=== PATIENT | female | born 1985 ===

== ENCOUNTER 2020-06-02 13:10 | Emergency (ER) | payer SELFPAY ==
--- NOTE | 2020-06-02 13:33 | Emergency Department Report ---
Blank Doc - Documentation Documentation: 35-year-old female that presents with SOB and cough. Stated has positive COVID. This initial assessment/diagnostic orders/clinical plan/treatment(s) is/are subject to change based on patient's health status, clinical progression and re- assessment by fellow clinical providers in the ED. Further treatment and workup at subsequent clinical providers discretion. Patient/guardians urged not to elope from the ED as their condition may be serious if not clinically assessed and managed. Initial orders include: 1- Patient sent to [facility] for further evaluation and treatment 2- CXR
--- NOTE | 2020-06-02 14:06 | XRay Report ---
CHEST 2 VIEWS INDICATION / CLINICAL INFORMATION: cough. COMPARISON: None available. FINDINGS: SUPPORT DEVICES: None. HEART / MEDIASTINUM: No significant abnormality. LUNGS / PLEURA: No significant pulmonary or pleural abnormality. No pneumothorax. No confluent infilt rate or pleural effusion. Calcified granuloma the right midlung field measures 0.7 cm. ADDITIONAL FINDINGS: No significant additional findings. IMPRESSION: 1. No acute findings. Signer Name: Zack Holloway MD Signed: 06/02/2020 2:01 PM Workstation Name: [employer]
[2020-06-03 02:11] LABS: Basophils % (Auto) 0.3 % (0.0-1.8); Eosinophils # (Auto) 0.1 K/mm3 (0.0-0.4); Eosinophils % (Auto) 1.4 % (0.0-4.3); Hematocrit 35.8 % (30.3-42.9); Hemoglobin 12.3 gm/dl (10.1-14.3); Lymphocytes # (Auto) 2.4 K/mm3 (1.2-5.4); Lymphocytes % (Auto) 27.2 % (13.4-35.0); Mean Corpuscular HGB Conc 34 % (30-34); Mean Corpuscular Volume 73 fl (79-97); Monocytes # (Auto) 0.6 K/mm3 (0.0-0.8); Monocytes % (Auto) 6.2 % (0.0-7.3); Platelet Count 344 K/mm3 (140-440); Red Cell Distribution Width 15.3 % (13.2-15.2)
[2020-06-03 02:37] LABS: Alanine Aminotransferase 64 units/L (7-56); Albumin 4.2 g/dL (3.9-5); Blood Urea Nitrogen 12 mg/dL (7-17); Calcium 9.7 mg/dL (8.4-10.2); Hemolysis Index 3
[2020-06-03 02:51] LABS: BUN/Creatinine Ratio 24
[2020-06-03] MEDS ORDERED: dexAMETHasone 20 MG/5 ML VIAL IV ONE (03:35)
[2020-06-03] MEDS ORDERED: ACETAMINOPHEN 325 MG TAB PO ONE (03:35)
--- NOTE | 2020-06-03 03:36 | Emergency Department Report ---
ED General Adult HPI - General Chief complaint: Dyspnea/Respdistress Stated complaint: SOB Time Seen by Provider: 06/02/20 13:32 Source: patient Mode of arrival: Ambulatory Limitations: No Limitations - History of Present Illness Initial comments: 35-year-old female presents with complaints of shortness of breath times today. Patient states her symptoms began with a cough and headache 1 week ago and she tested positive for COVID-19 yesterday. She denies any hemoptysis, nausea/vomiting/diarrhea, fever, abdominal pain, or leg pain/swelling. She sta main she has a decreased appetite and is has not been eating or drinking much. She also reports mild bilateral mid/lateral back pain that worsens with inhalation. She denies any past medical history or smoking. - Related Data Previous Rx's Medication Instructions Recorded Last Taken Type Albuterol Mdi (or & Nicu Only) 2 puff IH Q4H PRN #8.5 gram 06/03/20 Unknown Rx [ProAir HFA Inhaler] Azithromycin [Zithromax Z-DORYS] 0 mg PO DAILY 5 Days #6 tab 06/03/20 Unknown Rx Benzonatate 200 mg PO TID PRN #30 capsule 06/03/20 Unknown Rx predniSONE [Deltasone] 20 mg PO BID #6 tab 06/03/20 Unknown Rx Allergies Allergy/AdvReac Type Severity Reaction Status Date / Time No Known Allergies Allergy Unverified 06/02/20 13:29 ED Review of Systems ROS: Stated complaint: SOB Other details as noted in HPI Constitutional: chills, diaphoresis, malaise, weakness. denies: fever ENT: denies: throat pain Respiratory: cough, shortness of breath Cardiovascular: as per HPI Gastrointestinal: denies: abdominal pain, nausea, vomiting, diarrhea Genitourinary: denies: dysuria, frequency, hematuria Skin: denies: rash, lesions, change in color Neurological: headache. denies: numbness, paresthesias, abnormal gait, vertigo ED Past Medical Hx - Past Medical History Previous Medical History?: No - Surgical History Past Surgical History?: No - Medications Home Medications: Home Medications Medication Instructions Recorded Confirmed Last Taken Type Albuterol Mdi (or & Nicu Only) 2 puff IH Q4H PRN #8.5 gram 06/03/20 Unknown Rx [ProAir HFA Inhaler] Azithromycin [Zithromax Z-DORYS] 0 mg PO DAILY 5 Days #6 tab 06/03/20 Unknown Rx Benzonatate 200 mg PO TID PRN #30 capsule 06/03/20 Unknown Rx predniSONE [Deltasone] 20 mg PO BID #6 tab 06/03/20 Unknown Rx ED Physical Exam - General Limitations: No Limitations General appearance: alert, in no apparent distress - Head Head exam: Present: atraumatic, normocephalic - Eye Eye exam: Present: normal appearance. Absent: scleral icterus - Neck Neck exam: Present: normal inspection, full ROM. Absent: lymphadenopathy - Respiratory Respiratory exam: Present: rhonchi. Absent: respiratory distress, wheezes, rales - Cardiovascular Cardiovascular Exam: Present: regular rate, normal rhythm - GI/Abdominal GI/Abdominal exam: Present: soft. Absent: distended, tenderness - Extremities Exam Extremities exam: Present: full ROM. Absent: calf tenderness - Back Exam Back exam: Present: normal inspection, full ROM. Absent: tenderness - Neurological Exam Neurological exam: Present: alert, oriented X3, normal gait - Psychiatric Psychiatric exam: Present: normal affect, normal mood - Skin Skin exam: Present: warm, dry, intact, normal color. Absent: rash ED Course Vital Signs 06/02/20 13:32 Temperature 98.4 F Pulse Rate 74 Respiratory 20 Rate Blood Pressure 137/64 O2 Sat by Pulse 100 Oximetry ED Medical Decision Making - Lab Data Result diagrams: 06/03/20 01:56 06/03/20 01:56 Lab Results 06/03/20 06/03/20 06/03/20 Range/Units 01:56 01:56 01:56 WBC 9.0 (4.5-11.0) K/mm3 RBC 4.90 (3.65-5.03) M/mm3 Hgb 12.3 (10.1-14.3) gm/dl Hct 35.8 (30.3-42.9) % MCV 73 L (79-97) fl MCH 25 L (28-32) pg MCHC 34 (30-34) % RDW 15.3 H (13.2-15.2) % Plt Count 344 (140-440) K/mm3 Lymph % (Auto) 27.2 (13.4-35.0) % [place] % (Auto) 6.2 (0.0-7.3) % Eos % (Auto) 1.4 (0.0-4.3) % Baso % (Auto) 0.3 (0.0-1.8) % Lymph # (Auto) 2.4 (1.2-5.4) K/mm3 [place] # (Auto) 0.6 (0.0-0.8) K/mm3 Eos # (Auto) 0.1 (0.0-0.4) K/mm3 Baso # (Auto) 0.0 (0.0-0.1) K/mm3 Seg Neutrophils % 64.9 (40.0-70.0) % Seg Neutrophils # 5.8 (1.8-7.7) K/mm3 Sodium 137 (137-145) mmol/L Potassium 4.0 (3.6-5.0) mmol/L Chloride 101.1 (98-107) mmol/L Carbon Dioxide 24 (22-30) mmol/L Anion Gap 16 mmol/L BUN 12 (7-17) mg/dL Creatinine 0.5 L (0.6-1.2) mg/dL Estimated GFR > 60 ml/min BUN/Creatinine Ratio 24 % Glucose 96 (65-100) mg/dL Calcium 9.7 (8.4-10.2) mg/dL Total Bilirubin 0.40 (0.1-1.2) mg/dL AST 28 (5-40) units/L ALT 64 H (7-56) units/L Alkaline Phosphatase 79 (35-129) units/L Total Protein 8.1 (6.3-8.2) g/dL Albumin 4.2 (3.9-5) g/dL Albumin/Globulin Ratio 1.1 % HCG, Qual Negative (Negative) - Radiology Data Radiology results: report reviewed - Medical Decision Making 35-year-old female presents with complaints of shortness of breath times today. Patient states her symptoms began with a cough and headache 1 week ago and she tested positive for COVID-19 yesterday. She denies any hemoptysis, nausea/vomiting/diarrhea, fever, abdominal pain, or leg pain/swelling. She states she has a decreased appetite and is has not been eating or drinking much. She also reports mild bilateral mid/lateral back pain that worsens with inhalation. She denies any past medical history or smoking. Patient has some rhonchi noted bilaterally and lungs on exam. Chest x-ray is normal. No significant abnormalities noted on CBC or CMP. Pulse ox remains at 100% on room air with ambulatory check. Patient given saline bolus, Tylenol, Decadron for headache. Will discharge home with Z-Dorys and prednisone. Discussed importance of self quarantine and follow-up with primary care in 5 days. Recommend vitamin C and zinc daily. Also discussed in great detail signs and symptoms that should prompt immediate return to the emergency department in detail with patient who verbalizes understanding. Critical care attestation.: If time is entered above; I have spent that time in minutes in the direct care of this critically ill patient, excluding procedure time. ED Disposition Clinical Impression: COVID-19 Disposition: DC-01 TO HOME OR SELFCARE Is pt being admited?: No Condition: Stable Instructions: COVID-19, Prevent the Spread of COVID-19 if You Are Sick - [facility] Prescriptions: Benzonatate 200 mg PO TID PRN #30 capsule PRN Reason: Cough predniSONE [Deltasone] 20 mg PO BID #6 tab Albuterol Mdi (or & Nicu Only) [ProAir HFA Inhaler] 2 puff IH Q4H PRN #8.5 gram PRN Reason: Shortness Of Breath Azithromycin [Zithromax Z-DORYS] 0 mg PO DAILY 5 Days #6 tab Referrals: PRIMARY CARE, [Primary Care Provider] - 3-5 Days
[2020-06-03] MEDS ORDERED: SODIUM CHLORIDE 0.9% 1000 ML 1,000 ML IV ONE ×2 (03:55)
[2020-06-03] MEDS ORDERED: diphenhydrAMINE 50 MG/ML VIAL ONE (04:42)
[2020-06-03] MEDS ORDERED: diphenhydrAMINE 50 MG/ML VIAL IV ONE (04:42)
[2020-06-03 05:51] VITALS: BP 99/81
== END 2020-06-03 05:55 | disposition home or self-care (01) ==
LOC: ED 13:10
DX: U07.1 COVID-19 (principal)
CPT/HCPCS: 36415; 71046; 80053; 84703; 85025; 96361; 96374; 96375; 99284; J1100; J1200; J7030

== ENCOUNTER 2021-11-09 20:43 | Emergency (ER) | payer SELFPAY ==
[2021-11-10] MEDS ORDERED: SODIUM CHLORIDE 0.9% 1000 ML 1,000 ML IV ONE (01:33)
[2021-11-10] MEDS ORDERED: KETOROLAC 30 MG/1 ML INJ IV ONE (01:33)
[2021-11-10] MEDS ORDERED: ACETAMINOPHEN 500 MG TAB PO ONE (01:33)
[2021-11-10 02:01] LABS: Basophils % (Auto) 0.3 % (0.0-1.8); Eosinophils % (Auto) 0.2 % (0.0-4.3); Hematocrit 34.1 % (30.3-42.9); Hemoglobin 11.6 gm/dl (10.1-14.3); Lymphocytes # (Auto) 1.6 K/mm3 (1.2-5.4); Lymphocytes % (Auto) 10.1 % (13.4-35.0); Mean Corpuscular HGB Conc 34 % (30-34); Mean Corpuscular Volume 73 fl (79-97); Monocytes # (Auto) 0.9 K/mm3 (0.0-0.8); Monocytes % (Auto) 5.8 % (0.0-7.3); Platelet Count 358 K/mm3 (140-440); Red Blood Count 4.67 M/mm3 (3.65-5.03); Red Cell Distribution Width 15.2 % (13.2-15.2)
[2021-11-10 02:09] LABS: Bacteria,Urine 2+ /HPF (Negative); Bilirubin,Urine NEG (Negative); Blood,Urine MOD (Negative); Color,Urine Yellow (Yellow); Mucus,Urine FEW /HPF; Protein,Urine <15 mg/dL mg/dL (Negative); Urobilinogen,Urine < 2.0 mg/dL (<2.0)
[2021-11-10 02:19] LABS: Alanine Aminotransferase 14 units/L (7-56); Albumin 4.1 g/dL (3.9-5); Blood Urea Nitrogen 6 mg/dL (7-17); Calcium 9.2 mg/dL (8.4-10.2); Hemolysis Index 5
[2021-11-10 02:21] LABS: BUN/Creatinine Ratio 10
--- NOTE | 2021-11-10 03:02 | XRay Report ---
CHEST 2 VIEWS INDICATION / CLINICAL INFORMATION: FEVER STUDY TIME: 245 COMPARISON: 06/02/2020 FINDINGS: SUPPORT DEVICES: None. HEART / MEDIASTINUM: No significant abnormality. LUNGS / PLEURA: Calcified granuloma is again seen on the right. No focal infiltrates. No pleural effu sions. Mild diffuse increase in interstitial markings not obvious previously. Pulmonary vascularity i s not significantly congested appearance but this could represent slight diffuse interstitial edema. No pneumothorax. Calcified granuloma again seen on the right. ADDITIONAL FINDINGS: No significant additional findings. Signer Name: Jarrod Quintanilla MD Signed: 11/10/2021 2:58 AM Workstation Name: [id number]
[2021-11-10] MEDS ORDERED: cefTRIAXone/NS 1 GM/50 ML 1 GM/50 ML BAG IV ONE (03:06)
--- NOTE | 2021-11-10 03:25 | Emergency Department Report ---
<JIM POLLARD - Last Filed: 11/10/21 03:43> ED General Adult HPI - General Chief complaint: Fever Stated complaint: CHEST PAIN, ANNABEL/ WEAKNESS Source: patient, family Mode of arrival: Wheelchair Limitations: Language Barrier - History of Present Illness Initial comments: Patient is a 36-year-old female with past medical history of morbid obesity who presents to the ED with complaint of acute onset persistent diffuse body aches and pains, persistent fever and chills, sore throat, frontal sinus pressure and headache for the last 12 hours. Patient states that no one else at home has had similar symptoms. Patient denies cough, nausea and vomiting, diarrhea, abdominal pain, chest pain or shortness of breath, nasal or sinus congestion, change in vision, neck pain, low back pain, dysuria, urinary frequency and urgency or change in vision. MD Complaint: Sore throat, diffuse body aches and pains, headache, fever -: Sudden, hour(s) (12) Location: head, back, upper extremity, lower extremity Radiation: non-radiation Severity scale (0 -10): 8 Quality: aching, sharp Consistency: constant Improves with: none Worsens with: movement Associated Symptoms: denies other symptoms, fever/chills, headaches, loss of appetite, malaise. denies: chest pain, cough, diaphoresis, nausea/vomiting, rash, seizure, shortness of breath, syncope, weakness Treatments Prior to Arrival: none - Related Data Previous Rx's Medication Instructions Recorded Last Taken Type Albuterol Mdi (or & Nicu Only) 2 puff IH Q4H PRN #8.5 gram 06/03/20 Unknown Rx [ProAir HFA Inhaler] Benzonatate 200 mg PO TID PRN #30 capsule 06/03/20 Unknown Rx Azithromycin [Zithromax Z-DORYS] 250 mg PO DAILY 5 Days #6 tab 11/10/21 Unknown Rx Butalb/Acetamin/Caff 50-325-40 1 - 2 tab PO Q6HR PRN #15 tab 11/10/21 Unknown Rx [Fioricet 50-325-40] Cetirizine HCl [Zyrtec 10mg tab] 10 mg PO DAILY #30 tab 11/10/21 Unknown Rx Ibuprofen [Motrin] 800 mg PO Q8HR PRN #30 tablet 11/10/21 Unknown Rx Lidocaine Viscous 2% 10 ml PO Q6H PRN #120 ml 11/10/21 Unknown Rx predniSONE [Deltasone] 40 mg PO BID #10 tab 11/10/21 Unknown Rx Allergies Allergy/AdvReac Type Severity Reaction Status Date / Time walnut Allergy Shortness Verified 11/09/21 21:03 of Breath ED Review of Systems Constitutional: chills, fever, malaise Eyes: denies: eye pain, eye discharge, vision change ENT: throat pain, congestion Respiratory: denies: no symptoms reported, cough, orthopnea, shortness of breath, SOB with exertion, SOB at rest Cardiovascular: denies: chest pain, palpitations Endocrine: no symptoms reported Gastrointestinal: denies: abdominal pain, nausea, vomiting, diarrhea Genitourinary: denies: urgency, dysuria, discharge Musculoskeletal: back pain, arthralgia, myalgia. denies: joint swelling Skin: denies: rash, lesions Neurological: headache. denies: weakness, paresthesias Psychiatric: denies: anxiety, depression Hematological/Lymphatic: denies: easy bleeding, easy bruising ED Past Medical Hx - Medications Home Medications: Home Medications Medication Instructions Recorded Confirmed Last Taken Type Albuterol Mdi (or & Nicu Only) 2 puff IH Q4H PRN #8.5 gram 06/03/20 Unknown Rx [ProAir HFA Inhaler] Benzonatate 200 mg PO TID PRN #30 capsule 06/03/20 Unknown Rx Azithromycin [Zithromax Z-DORYS] 250 mg PO DAILY 5 Days #6 tab 11/10/21 Unknown Rx Butalb/Acetamin/Caff 50-325-40 1 - 2 tab PO Q6HR PRN #15 tab 11/10/21 Unknown Rx [Fioricet 50-325-40] Cetirizine HCl [Zyrtec 10mg tab] 10 mg PO DAILY #30 tab 11/10/21 Unknown Rx Ibuprofen [Motrin] 800 mg PO Q8HR PRN #30 tablet 11/10/21 Unknown Rx Lidocaine Viscous 2% 10 ml PO Q6H PRN #120 ml 11/10/21 Unknown Rx predniSONE [Deltasone] 40 mg PO BID #10 tab 11/10/21 Unknown Rx ED Physical Exam - General Limitations: Language Barrier General appearance: alert, in no apparent distress - Head Head exam: Present: atraumatic, normocephalic, normal inspection - Eye Eye exam: Present: normal appearance, PERRL, EOMI Pupils: Present: normal accommodation - ENT ENT exam: Present: mucous membranes moist, TM's normal bilaterally, normal external ear exam, other (Erythematous oropharynx with mild patchy exudates) - Neck Neck exam: Present: normal inspection, full ROM, lymphadenopathy (Anterior cervical lymphadenopathy). Absent: tenderness - Respiratory Respiratory exam: Present: normal lung sounds bilaterally. Absent: respiratory distress, wheezes, chest wall tenderness, accessory muscle use, decreased breath sounds - Cardiovascular Cardiovascular Exam: Present: normal rhythm, tachycardia, normal heart sounds. Absent: systolic murmur, diastolic murmur, rubs, gallop - GI/Abdominal GI/Abdominal exam: Present: soft, normal bowel sounds. Absent: tenderness, guarding, rebound, rigid, hyperactive bowel sounds, hypoactive bowel sounds, organomegaly - Extremities Exam Extremities exam: Present: normal inspection, full ROM, normal capillary refill. Absent: tenderness - Back Exam Back exam: Present: normal inspection, full ROM. Absent: tenderness, CVA tenderness (R), CVA tenderness (L), muscle spasm, paraspinal tenderness, vertebral tenderness - Neurological Exam Neurological exam: Present: alert, oriented X3, CN II-XII intact, normal gait, reflexes normal - Psychiatric Psychiatric exam: Present: normal affect, normal mood - Skin Skin exam: Present: warm, dry, intact, normal color. Absent: rash ED Medical Decision Making - Lab Data Result diagrams: 11/10/21 01:45 11/10/21 01:45 - Radiology Data Radiology results: report reviewed, image reviewed [facility] [address] [place] [address] XRay Report Signed Patient: ELOINA MURPHY MR#: [id number] : 1985 Acct:[id number] Age/Sex: 36 / F ADM Date: 11/09/21 Loc: ED Attending Dr: Ordering Physician: KORTNEY ADORNO Date of Service: 11/10/21 Procedure(s): XR chest routine 2V Accession Number(s): [id number] cc: KORTNEY ADORNO Fluoro Time In Minutes: CHEST 2 VIEWS INDICATION / CLINICAL INFORMATION: FEVER STUDY TIME: 0246 COMPARISON: 06/02/2020 FINDINGS: SUPPORT DEVICES: None. HEART / MEDIASTINUM: No significant abnormality. LUNGS / PLEURA: Calcified granuloma is again seen on the right. No focal infiltrates. No pleural effusions. Mild diffuse increase in interstitial markings not obvious previously. Pulmonary vascularity is not significantly congested appearance but this could represent slight diffuse interstitial edema. No pneumothorax. Calcified granuloma again seen on the right. ADDITIONAL FINDINGS: No significant additional findings. Signer Name: Jarrod Quintanilla MD Signed: 11/10/2021 2:58 AM Workstation Name: [id number] Transcribed By: ALON Dictated By: Jarrod Quintanilla MD Electronically Authenticated By: Jarrod Quintanilla MD Signed Date/Time: 11/10/21257 DD/ 5 TD/TT: - Medical Decision Making This is a 36-year-old female with past medical history of morbid obesity who presents to the ED with complaint of acute onset persistent diffuse body aches and pains, persistent fever and chills, sore throat, frontal sinus pressure and headache for the last 12 hours. Patient states that no one else at home has had similar symptoms. In the ED, patient is alert and oriented x3 and is not in any distress. Patient is however tachycardic and febrile in triage. Patient was treated for fever in the ED at home, also received normal saline 1 L IV bolus x1 and also treated for pain. Patient also received Rocephin 1 g IV x1. Rapid influenza test was negative. Rapid strep test was positive for streptococcal pharyngitis. Chest x-ray showed no acute cardiopulmonary abnormalities or pneumonitis. Lab test results were reviewed and showed acute leukocytosis of 15,800, mild hyponatremia of 133 mmol/L and mild hypokalemia of 3.3 mmol/L. On reevaluation, patient felt better, fever and chills resolved and tachycardia also resolved. Patient pain is well controlled medication. Patient was discharged home on pain medication and antibiotics for streptococcal pharyngitis and advised to drink plenty of fluids and follow-up with her primary care physician in 5 to 7 days for reevaluation or return to the ED immediately if symptoms get worse. - Differential Diagnosis Influenza, Strep pharyngitis, Tonsillitis; Pneumonia; UTI ED Disposition Clinical Impression: Fever and chills, Generalized body aches, Acute streptococcal pharyngitis Acute frontal sinusitis, unspecified Qualifiers: Recurrence: non-recurrent Qualified Code(s): J01.10 - Acute frontal sinusitis, unspecified Disposition: 01 HOME / SELF CARE / HOMELESS Is pt being admited?: No Does the pt Need Aspirin: No Condition: Stable Instructions: Sinusitis, Adult, [id number], Strep Throat, Adult, [id number], Upper Respiratory Infection, Adult, [id number], Fever, Adult, [id number] Additional Instructions: La radiografa de trax no mostr anomalas cardiopulmonares agudas ni neumonitis. La prueba rpida de influenza fue negativa. La prueba rpida de estreptococos fue positiva para faringitis estreptoccica. Por lo tanto, es probable que eb sntomas se deban a ama faringitis estreptoccica. Por lo tanto, tome la medicacin con alimentos, kathy muchos lquidos, controle con escamilla mdico de atencin primaria en 7 a 10 jefferson para ama reevaluacin. Regrese al se rvicio de urgencias inmediatamente si los sntomas empeoran. Prescriptions: predniSONE [Deltasone] 40 mg PO BID #10 tab Butalb/Acetamin/Caff 50-325-40 [Fioricet 50-325-40] 1 - 2 tab PO Q6HR PRN #15 tab PRN Reason: Headache Lidocaine Viscous 2% 10 ml PO Q6H PRN #120 ml PRN Reason: Sore Throat Ibuprofen [Motrin] 800 mg PO Q8HR PRN #30 tablet PRN Reason: Pain , Severe (7-10) Azithromycin [Zithromax Z-DORYS] 250 mg PO DAILY 5 Days #6 tab Cetirizine HCl [Zyrtec 10mg tab] 10 mg PO DAILY #30 tab Referrals: [facility] [Provider Group] - 3-5 Days Forms: Work/School Release Form(ED) Time of Disposition: 03:26 Print Language: YI <MAME BAILON - Last Filed: 11/10/21 04:08> ED Review of Systems ROS: Stated complaint: CHEST PAIN, ANNABEL/ WEAKNESS Other details as noted in HPI ED Course Vital Signs 05/26/22 05/27/22 05/27/22 21:01 01:54 01:55 Temperature 101.6 F H Pulse Rate 119 H Respiratory 22 16 16 Rate Blood Pressure 112/84 Blood Pressure [Left] O2 Sat by Pulse 99 Oximetry 11/10/21 03:39 Temperature Pulse Rate 88 Respiratory 12 Rate Blood Pressure Blood Pressure 107/56 [Left] O2 Sat by Pulse 97 Oximetry ED Medical Decision Making - Lab Data Result diagrams: 11/10/21 01:45 11/10/21 01:45 Critical care attestation.: If time is entered above; I have spent that time in minutes in the direct care of this critically ill patient, excluding procedure time. ED Disposition Is pt being admited?: No Does the pt Need Aspirin: No
[2021-11-10 03:40] VITALS: BP 107/56
== END 2021-11-10 03:50 | disposition home or self-care (01) ==
LOC: ED 20:43
DX: R50.9 Fever, unspecified (principal); R52 Pain, unspecified; J02.0 Streptococcal pharyngitis; J01.10 Acute frontal sinusitis, unspecified
CPT/HCPCS: 36415; 71046; 80053; 81001; 84703; 85025; 87086; 87430; 87502; 93005; 96361; 96374; 99284; J1885; J7030; 87076; 87186